=== PATIENT | female | born 1945 | race Caucasian/White ===

== ENCOUNTER → 2020-01-25 09:06 | Outpatient (CLI) | payer MEDICARE | END | disposition home or self-care (01) | LOC: D.CT 09:06 | PROVIDERS: ATTEND Internal Medicine Gastroenterology | DX: R93.3 Abnormal findings on diagnostic imaging of other parts of digestive tract (principal); K63.89 Other specified diseases of intestine ==

== ENCOUNTER → 2020-02-09 08:39 | Outpatient (CLI) | payer MEDICARE | END | disposition home or self-care (01) | LOC: D.RAD 08:39 | PROVIDERS: ATTEND Surgery | DX: K63.89 Other specified diseases of intestine (principal) ==

== ENCOUNTER 2020-09-13 08:59 | Inpatient (IN) | payer MEDICARE ==
[~2020-09-13] VITALS: Ht 157.5 cm; Wt 68.0 kg
[2020-09-13 09:44] LABS: HEMATOCRIT 42.1 % (36.0-48.0); HEMOGLOBIN 13.8 g/dL (12-16); MCH 29.7 pg (26.0-34.0); MCHC 32.8 g/dL (31.0-37.0); MCV 90.5 fL (80.0-100.0); MEAN PLATELET VOLUME 9.1 fL (7.4-10.4); RBC 4.65 10x6/uL (4.00-5.40); RDW 13.9 % (11.5-14.5); WBC 6.6 10x3/uL (4.8-10.8)
[2020-09-13 10:27] VITALS: BP 130/66; BMI 27.5
[2020-09-13] MEDS ORDERED: ZOCOR20 MG PO (10:30)
--- NOTE | 2020-09-13 14:36 | HP ---
PATIENT: ALFA SEE MEDICAL RECORD: [id number] ACCOUNT: [id number] [facility] 47 ADMISSION DATE: 09/13/20 PCP: BERKLEY HARRIS MD HISTORY AND PHYSICAL EXAMINATION PRINCIPAL DIAGNOSIS: Hepatic flexure mass. HISTORY OF PRESENT ILLNESS: The patient is to undergo colonoscopy today. The risks, possible complications, and alternatives of the procedure were explained to the patient. She elects to proceed. A barium enema failed to reveal a hepatic flexure mass. HOME MEDICATIONS: Please see the nursing list. ALLERGIES: PENICILLIN. PAST MEDICAL AND SURGICAL HISTORY: , cholecystectomy, back surgery. PHYSICAL EXAMINATION: GENERAL: The patient does not appear acutely ill. She does not appear chronically ill. VITAL SIGNS: Reviewed. EARS: External ears appear normal. EYES: Extraocular movements are intact. NECK: Trachea is midline. CHEST: No intercostal retractions. PULMONARY: Nonlabored. No stridor. IMPRESSION: History of a hepatic flexure mass. PLAN: Will be colonoscopy. TRANSINT:[id number] Voice Confirmation ID: [id number] DOCUMENT ID: [id number] COLUMBA PERALTA MD at 1436 CC: BERKLEY HARRIS MD and [facility] [id number] DICTATION DATE: 09/13/20 1120 FAMILY MEDICINE CHAIR: 09/13/20 1242 [facility] [address] [place] [address]
--- NOTE | 2020-09-13 16:44 | NUR ---
2700 report given to david mcclure. tolerating jello
--- NOTE | 2020-09-13 17:58 | OP ---
PATIENT NAME: ALFA SEE MEDICAL RECORD: [id number] :47 LOCATION:[id number] ADMISSION DATE:09/13/20 SURGEON: COLUMBA PERALTA MD DATE OF OPERATION: 09/13/2020 PREOPERATIVE DIAGNOSIS: Hepatic flexure mass. POSTOPERATIVE DIAGNOSIS: Hepatic flexure mass, it was partially carpeting and partially pedunculated at the hepatic flexure. PROCEDURE: 1. Total colonoscopy to cecum. 2. Endoscopic submucosal epinephrine injection for hemostasis. 3. Endoscopic tattooing with Elena ink distal to the mass. SURGEON: Columba Peralta MD NUT GRINDER: None. BLOOD LOSS: Minimal. ANESTHESIA: IV sedation. COMPLICATIONS: None. The risks, possible complications, and alternatives of the procedure were explained to the patient. She elected to proceed. ENDOSCOPIC COURSE: The patient was conveyed to the endoscopy suite electively on 09/13/2020. IV sedation was induced by the anesthesia staff. The patient was placed in the Jay position. A digital rectal examination was performed. A colonoscope was inserted through the anus. It was easily advanced to the cecum. Upon withdrawal, I irrigated and aspirated extensively. I noted the mass. There was a tattoo that was just distal to the mass. I initially was going to try to remove the pedunculated portion of the mass. I advanced the sclerotherapy needle. I punctured the mucosa. A submucosal injection of epinephrine was performed for post-procedural hemostasis. I then examined the mass further and determined that it was not endoscopically resectable. It was going to need to be resected surgically. I then withdrew distal to the mass and retattooed with 8 mL of Elena ink, which was injected with the same sclerotherapy needle in the submucosal space. The endoscope was then withdrawn under direct vision. I am going to give the patient the option to have her operation tomorrow. I am hopeful that we can perform the operation laparoscopically. TRANSINT:[id number] Voice Confirmation ID: [id number] DOCUMENT ID: [id number] OPERATIVE REPORT [id number] MAYIALFACOLUMBA JUAREZ MD at 1758 CC: BERKLEY HARRIS MD and [facility] [id number] DICTATION DATE: 09/13/20 1227 ORACLE SOA DEVELOPER: 09/13/[address] [facility] [address] [place] [address]
[2020-09-13 18:46] VITALS: BP 130/66; BMI 27.5
[2020-09-13 20:00] VITALS: BP 112/54
--- NOTE | 2020-09-13 20:00 | NUR ---
PT SITTING UP IN BED WITHOUT DISTRESS, DENIES PAIN. SIGNED CONSENTS FOR HALS PROCEDURE TOMORROW AT THIS TIME. REMINDED PT SHE IS NPO AFTER MN, VERBALIZED UNDERSTANDING. PT GOT UP TO TAKE HIBI CLENS SHOWER AT THIS TIME. DENIES OTHER NEEDS. CL IN REACH
[2020-09-14] VITALS: BP 122/63
[2020-09-14 04:00] VITALS: BP 122/63; BP 126/69
--- NOTE | 2020-09-14 07:17 | NUR ---
RECIEVED BEDSIDE REPORT. IN BED SLEEPING. AROUSES TO VOICE. FREE FROM SIGNS OF DITRESS. BED LOW POSITION, CALL LIGHT IN REACH. WILL CONTINUE TO MONITOR.
[2020-09-14 08:21] VITALS: BP 120/67
[2020-09-14 12:42] VITALS: BP 135/65
--- NOTE | 2020-09-14 14:17 | NUR ---
IN ROOM FAMILY AT BEDSIDE. FREE FROM SIGNS OF DISTRESS. NEW IV PLACED IN RIGHT HAND. 20 GUAGE.
[2020-09-14 17:39] VITALS: BP 116/66
--- NOTE | 2020-09-14 19:45 | NUR ---
PT TAKEN TO SURGERY AT THIS TIME
--- NOTE | 2020-09-14 22:39 | NUR ---
PATIETN SLEEPING COMFROTABLY AFTER 25 OF DEMEROL. WHEN I WAKE HER UP SHE STATES SHE IS IN PAIN BUT THEN DRIFTS OFF TO SLEEP. NO GRIMACING OR GROANING AT THIS TIME. VSS. 95% ON RA AT THIS TIME. BP AND HR NOT ELEVATED AT THIS TIME.
--- NOTE | 2020-09-14 22:47 | NUR ---
PT SLEEPING. AROUSES TO TACTILE STIMULATION. PROVIDES APPRORIATE ANSWER FOR QUESTIONS.
[2020-09-14 22:52] VITALS: BP 112/63
--- NOTE | 2020-09-14 23:00 | NUR ---
PT BROUGHT BACK FROM SURGERY AT THIS TIME. VSS. SCDS ON BILAT. DRESSINGS TO ABD CDI. PT WAKES TO VERBAL STIMULI. STATES SOME PAIN TO ABD, SET UP DILAUDID SERVICES CLERK AND EDUCATED HOW TO USE, PT AND PT VERBALIZED UNDESTANDING. PROVIDED ICE CHIPS. GE IN PLACE. DENIES OTHER NEEDS AT THIS TIME. CL IN REACH
[2020-09-15] VITALS: BP 112/63
[2020-09-15 04:00] VITALS: BP 123/60
[2020-09-15 06:09] LABS: BASOPHILS 0 % (0-2); EOSINOPHILS 0 % (0-7); HEMATOCRIT 37.4 % (36.0-48.0); HEMOGLOBIN 11.8 g/dL (12-16); IMMATURE GRANULOCYTES 0.3 % (0-5); LYMPHOCYTE ABS# 0.44 10x3/uL (1.18-3.74); LYMPHOCYTES 3.6 % (15-50); MCH 29.4 pg (26.0-34.0); MCHC 31.6 g/dL (31.0-37.0); MEAN PLATELET VOLUME 9.9 fL (7.4-10.4); NEUTROPHIL ABS# 11.04 10x3/uL (1.56-6.13); NEUTROPHILS 91.1 % (40-80); PLATELET COUNT 243 10x3/uL (130-400); RBC 4.01 10x6/uL (4.00-5.40)
[2020-09-15 06:11] LABS: MCV 93.3 fL (80.0-100.0); WBC 12.1 10x3/uL (4.8-10.8)
[2020-09-15 06:29] LABS: ALBUMIN 2.8 g/dL (3.4-5.0); ALKALINE PHOSPHATASE 68 U/L (30-120); ALT (SGPT) 47 U/L (10-68); BILIRUBIN - TOTAL 0.52 mg/dL (0.2-1.3); CALCIUM 7.8 mg/dL (8.5-10.1); CREATININE - SERUM 0.8 mg/dL (0.6-1.3); GLUCOSE 175 mg/dL (74-106); MAGNESIUM - SERUM 1.8 mg/dL (1.8-2.4); PHOSPHOROUS 3.6 mg/dL (2.5-4.9); PROTEIN - SERUM 6.6 g/dL (6.4-8.2); TROPONIN-I < 0.017 ng/mL (0.000-0.060); UREA NITROGEN 8 mg/dL (7-18); eGFR NON AFRICAN AMERICAN 74 mL/min (90-120)
[2020-09-15 06:42] LABS: CALC OSMOLALITY 279 mosm/kg (275-300); CHLORIDE - SERUM 105 mmol/L (98-107); POTASSIUM - SERUM 4.2 mmol/L (3.5-5.1); SODIUM 139 mmol/L (136-145)
[2020-09-15 08:02] VITALS: BP 115/56
--- NOTE | 2020-09-15 08:02 | NUR ---
ALERT AND ORIENTED. ASSESSMENT COMPLETE. BED LOW. CALL DE SOUZA AND PERSONAL ITEMS IN REACH. WILL CONTINUE TO MONITOR.
[2020-09-15 13:54] VITALS: Ht 157.5 cm; Wt 68.0 kg
[2020-09-15 14:10] VITALS: BP 128/67
[2020-09-15 16:57] VITALS: BP 126/57
--- NOTE | 2020-09-15 18:13 | NUR ---
RESTING IN BED. DENIES NEEDS. BED LOW. CALL DE SOUZA AND PERSONAL ITEMS IN REACH. WILL CONTINUE TO MONITOR.
[2020-09-15 20:24] VITALS: BP 110/51
[2020-09-16 05:31] VITALS: BP 121/68
[2020-09-16 08:07] VITALS: BP 131/73
[2020-09-16 12:10] VITALS: BP 117/57
[2020-09-16 16:59] VITALS: BP 115/48
[2020-09-16 20:00] VITALS: BP 125/53
[2020-09-17] VITALS: BP 139/67
--- NOTE | 2020-09-17 02:49 | NUR ---
Assisted pt to BR for explosive loose stool. Pt's BSAX4 - more so than last night. Pt does have a blister appearing just below the mid left lap incision on ABD with another to lower left ABD fold. Denies pain/discomfort to both and edges have been marked for monitoring. Pt denies any discomfort from either site. Pt's incision to Rt ABD is bruising around same. Pt does c/o some pain to this area. Pt assisted back to bed and resting at this time.
[2020-09-17 04:00] VITALS: BP 114/34
[2020-09-17 05:08] LABS: BASOPHILS 0 % (0-2); EOSINOPHILS 0.1 % (0-7); HEMATOCRIT 32.8 % (36.0-48.0); HEMOGLOBIN 10.4 g/dL (12-16); IMMATURE GRANULOCYTES 0.4 % (0-5); LYMPHOCYTE ABS# 0.71 10x3/uL (1.18-3.74); LYMPHOCYTES 9.7 % (15-50); MCH 29.1 pg (26.0-34.0); MCHC 31.7 g/dL (31.0-37.0); MCV 91.6 fL (80.0-100.0); MEAN PLATELET VOLUME 9.8 fL (7.4-10.4); MONOCYTES 11.1 % (2-11); NEUTROPHIL ABS# 5.77 10x3/uL (1.56-6.13); NEUTROPHILS 78.7 % (40-80); PLATELET COUNT 233 10x3/uL (130-400); RBC 3.58 10x6/uL (4.00-5.40); RDW 14.1 % (11.5-14.5); WBC 7.3 10x3/uL (4.8-10.8)
[2020-09-17 05:22] LABS: CALC OSMOLALITY 277 mosm/kg (275-300); CALCIUM 7.6 mg/dL (8.5-10.1); CARBON DIOXIDE 24.2 mmol/L (21.0-32.0); CHLORIDE - SERUM 107 mmol/L (98-107); CREATININE - SERUM 0.6 mg/dL (0.6-1.3); GLUCOSE 148 mg/dL (74-106); POTASSIUM - SERUM 3.7 mmol/L (3.5-5.1); SODIUM 138 mmol/L (136-145); UREA NITROGEN 10 mg/dL (7-18); eGFR NON AFRICAN AMERICAN > 90 mL/min (90-120)
[2020-09-17 08:04] VITALS: BP 111/58
--- NOTE | 2020-09-17 08:09 | NUR ---
PT AWAKE AND ALERT. NO NEEDS AT THIS TIME. CL IN REACH. BED ALARM ON. WCTM
[2020-09-17 11:35] VITALS: BP 118/66
--- NOTE | 2020-09-17 14:00 | NUR ---
PAGED DR REDDY TO ASK FOR REGLAN TO HELP THE PT NAUSEA AND VOMITING.
[2020-09-17 16:00] VITALS: BP 116/64
--- NOTE | 2020-09-17 16:04 | NUR ---
PT HAS HAD A SHOWER AND SCD'S REAPPLIED AND TURNED ON. CL IN REACH. NO FURTHER NEEDS AT THIS TIME. WCTM
[2020-09-17 20:00] VITALS: BP 111/47
[2020-09-18] VITALS: BP 93/45
[2020-09-18 04:00] VITALS: BP 96/47
--- NOTE | 2020-09-18 04:52 | NUR ---
Pt is in bed resting at this time. Pt did get up and walk several times around the room last evening. Using call light appropriately to request assist. C/o pain have been minimal and scheduled pain meds along with CHOCOLATE TEMPERER have been effective for managing same. Pt was more alert last evening and also had a better po intake. IV med/fluid running per order. No changes to fluid filled pockets on pt's ABD that she states do come up on her body. She does have several of the same on face and bilateral arms. Zofran given only once this night and has remained effective for c/o nausea.
[2020-09-18 09:36] VITALS: BP 110/64
[2020-09-18 12:29] VITALS: BP 137/65
--- NOTE | 2020-09-18 13:44 | NUR ---
Nutrition follow-up: Pt s/p HALS colectomy Diet advanced to full liquids today +BM, explosive per nurse labs reviewed WT: 150# Will provide food choices with selective menus and honor food preferences with diet restrictions. Will offer nutritional supplements. RDN will follow-up: 09/21/20
--- NOTE | 2020-09-18 15:23 | NUR ---
WALKED 250 FT CGA
[2020-09-18 16:18] VITALS: BP 170/92
[2020-09-18 20:00] VITALS: BP 141/60
[2020-09-19] VITALS: BP 118/52
[2020-09-19 04:00] VITALS: BP 119/45
--- NOTE | 2020-09-19 05:00 | NUR ---
Pt walking around unit at this time. Has refused any pain medication and states the abd pain is tolerable.
--- NOTE | 2020-09-19 07:36 | NUR ---
PATIENT AWAKW LAYING IN BED, NO SIGNS OF DISTRESS, ABD STILL A LITTLE SWOLLEN, 3 LAP SITES CDI, RT LOWER ABD INCISION SITE, CDI, PATIENT A&O X4. GAVE PATIENT FRESH GLASS OF ICE, CL IN REACH CONTINUE WITH PLAN OF CARE
[2020-09-19 09:00] VITALS: BP 125/57
--- NOTE | 2020-09-19 10:37 | NUR ---
PATIENT ASLEEP IN BED, EASILY AWAKENED, NO NEEDS VOICED, CL IN REACH, IV TO LEFT HAND DC WITH CATHETER INTACT. COTNINUE WITH PLAN OF CARE
--- NOTE | 2020-09-19 12:37 | NUR ---
SITTING UP AT BEDSIDE EATING LUNCH. DENIES NEEDS.CALL LIGHT IN REACH. TO VISIT
[2020-09-19 13:50] VITALS: BP 149/77
--- NOTE | 2020-09-19 15:50 | NUR ---
PATIENT SITTING UP IN BED, NO NEEDS VOICED, STATED SHE IS SORE BUT DECLINED PAIN MEDICATION. CL IN REACH, CONTINUE WITH PLAN OF CARE
--- NOTE | 2020-09-19 16:58 | NUR ---
ADMINISTERED PRN PAIN MEDICATION PER REQUEST PATIENT STATED SITE IS SORE AND GETTING UNCOMFORTABLE, NO OTHER NEEDS AT THIS TIME, CONTINUE WITH PLAN OF CARE
[2020-09-19 17:39] VITALS: BP 141/73
--- NOTE | 2020-09-19 19:17 | NUR ---
Assumed care of pt after report/rounds. Pt is sitting in chair at bedside. A&Ox4 and verbalizes waants/needs clearly, appropriately and without hesitation or difficulty. Pt is anticipating DC in the AM. Utilizing call light appropriately to request assist. SCD's on while in bed.
[2020-09-19 20:00] VITALS: BP 133/60
[2020-09-20 04:00] VITALS: BP 119/53
--- NOTE | 2020-09-20 05:18 | NUR ---
Pt has rested in bed this night. Spouse in at midnight and requested staff allow pt to sleep. Pt has refused SCD's stating she is going home and does not want them impeding her independence. Pt teaching performed, pt verbalized understanding and continued to refuse the same after in bed last night and SCD's removed for bathroom use. No c/o pain/discomfort for this nurse.
[2020-09-20 09:08] VITALS: BP 133/65
[2020-09-20] MEDS ORDERED: HYDROCODONE-AC1 EAC2 PO (11:52)
[2020-09-20] MEDS ORDERED: COLACE100 MG PO (11:52)
--- NOTE | 2020-09-20 12:14 | MORECARE ---
CASE MANAGEMENT DISCHARGE SUMMARY PATIENT: ALFA SEE UNIT: [id number] ADM DATE: 09/13/20 AGE: 75 : 47 SEX: F ROOM/BED: D.2229 AUTHOR: SABA,DOC PHYSICIAN: REFERRING PHYSICIAN: COLUMBA PERALTA MD DATE OF SERVICE: 09/20/20 Case Management Discharge Planning Summary COMMENTS ENTERED DATE: 09/20/20 12:11 CT COMMENT TYPE: Discharge Planning REVIEWER: Mary Pablo CM met with patient at bedside after obtaining verbal consent. CM discussed availability / needs of home health, REHAB and medical equipment. Denies need for home health or medical equipment. Family at bedside. IMM signed and copy on chart. Patient to dc to home today. CM to follow and assist as needed. DCP REVIEW SUMMARY ANTICIPATED D/C DATE: EXPECTED LOS : CASE STATUS: DCP Initiated INITIAL REVIEW: 09/13/2020 INITIAL REVIEWER: Mary Pablo FINAL DISCHARGE DISPOSITION: : FINAL REVIEWER: FINAL REVIEW DATE: DCP Focus Questions & Answers DCP Screen QUESTION: ANSWER High Risk Factors: : None Walking limitation: Patient stated self rated walking limitation present? : No Age: : 19 - 45 Prior living environment: : Lives with others Disability ranking: : Grade 1: No significant disability DCP Evaluation QUESTION: ANSWER Patient's current cognitive status: : *Oriented to person, place, situation, time and present Patient's ability to cope with chronic illness : d. No chronic illness Functional screen assessment: : Can meet basic needs but may require referral for resources Functional screen assessment: : No issues identified Family / Caregiver's ability to cope with chronic illness: : a. Adequate (ability to meet patient's medical needs, ensures patient attends medical appts.) Physical Status: : Independent with ADL's Living Arrangements: : Home with Spouse/Significant Other Baseline cognitive status: : *Oriented to person, place, situation, time and present Medication Management: : Patient states can afford medications Pharmacy name(s): : [facility] Does Patient have transportation to get home and to follow-up medical appointments when discharged from the hospital? : Yes Would patient like to participate in any Care Coordination programs (if applicable): : Not applicable Does the patient have electricity at home? : Yes Does the patient have running water in their house? : Yes Equipment in use: : None Mental health screen: : No mental health history Resources / Services in place: : None DCP Re-evaluation QUESTION: ANSWER Would patient like to participate in any Care Coordination programs (if applicable): : Not applicable PATIENT: ALFA SEE ENCOUNTER: [id number] MEDICAL RECORD#: [id number] ADMISSION DATE: 09/13/2020 DISCHARGE DATE: ATTENDING MD: COLUMBA JOHNSON : AGE: 75 MARITAL STATUS: M DC PLAN ID: [id number] FACILITY: [facility] PRINTED ON: 09/20/20 12:14 CT All edits/amendments must be made on the electronic document DICTATION DATE: 09/20/20 121 BENDING MACHINE OPERATOR: CHELLE 09/20/20 1214 RPT#: [id number] DC DATE: STATUS: ADM IN [facility] [address] [place] [address] END OF REPORT
== END 2020-09-20 12:50 | disposition home or self-care (01) | DRG 331 ==
LOC: D.OPS 08:59 → D.MS 16:43 → D.OPS 16:44 → D.MS 16:44 → D.SDCHOLD 09-15 16:58 → D.MS 09-15 16:59
PROVIDERS: Anesthesiology; Surgery; ADMIT Surgery; ATTEND Surgery
PROC: 0DTF0ZZ Resection of Right Large Intestine, Open Approach (ICD-10-PCS; 2020-09-13)
PROC: 0DJD8ZZ Inspection of Lower Intestinal Tract, Via Natural or Artificial Opening Endoscopic (ICD-10-PCS; 2020-09-13)
PROC: 3E0H8GC Introduction of Other Therapeutic Substance into Lower GI, Via Natural or Artificial Opening Endoscopic (ICD-10-PCS; principal; 2020-09-13 09:00)
DX: K63.89 Other specified diseases of intestine (principal); E78.5 Hyperlipidemia, unspecified